=== PATIENT | female | born 1935 | race Caucasian/White ===

== ENCOUNTER 2017-09-19 15:34 | Observation (INO) ==
[2017-09-19] MEDS ORDERED: Morphine Inj 4 MG/ML Vial IV.PUSH ONE (16:44)
[2017-09-19 17:06] LABS: Baso # (Auto) 0.1 th/mm3 (0.0-0.2); Baso % (Auto) 0.9 % (0.0-2.0); Eos # (Auto) 0.1 th/mm3 (0.0-0.4); Eos % (Auto) 0.8 % (0.0-4.0); Hematocrit 34.7 % (35.0-46.0); Hemoglobin 11.8 gm/dL (11.6-15.3); Lymph # (Auto) 1.2 th/mm3 (1.0-4.8); Lymph % (Auto) 16.4 % (9.0-44.0); Mean Corpuscular HGB Conc 34.1 % (32.0-36.0); Mean Corpuscular Hemoglobin 29.4 pg (27.0-34.0); Mean Corpuscular Volume 86.1 fL (80.0-100.0); Mean Platelet Volume 7.6 fL (7.0-11.0); Mono # (Auto) 0.6 th/mm3 (0.0-0.9); Neut # (Auto) 5.2 th/mm3 (1.8-7.7); Neut % (Auto) 72.9 % (16.0-70.0); Platelet Count 312 th/mm3 (150-450); Red Blood Count 4.03 mil/mm3 (4.00-5.30); Red Cell Distribution Width 14.3 % (11.6-17.2); White Blood Count 7.2 th/mm3 (4.0-11.0)
[2017-09-19 17:14] LABS: Activated Partial Thrombo Time 26.4 sec (24.3-30.1); INR 1.1 Ratio; Prothrombin Time 11.2 sec (9.8-11.6)
--- NOTE | 2017-09-19 17:15 | XR ---
EXAM DATE: 09/19/2017 5:12 PM EDT AGE/SEX: 82 years / Female INDICATIONS: Shortness of breath. CLINICAL DATA: This is the patient's initial encounter. Patient reports that signs and symptoms have been present for 1 day and indicates a pain score of 0/10. MEDICAL/SURGICAL HISTORY: None. None. COMPARISON: No prior exams available for comparison. FINDINGS: No significant focal pleural or parenchymal opacities. The cardiomediastinal contours are unremarkabl e. Lower cervical fixation hardware in place. Osseous structures are intact. CONCLUSION: 1. No acute cardiopulmonary disease. Electronically signed by: Frankie Stafford MD 09/19/2017 5:13 PM EDT
--- NOTE | 2017-09-19 17:20 | ED ---
HPI General Chief Complaint: Syncope Stated Complaint: Syncopal episode/fall/hit back of head Time Seen by Provider: 09/19/17 16:33 Source: patient and family Mode of arrival: ambulatory Limitations: no limitations History of Present Illness HPI narrative: Pt is an 82 year old female presenting to the emergency department for evaluation after a syncopal episode. Pt was in her bathroom when she walked to the bathroom door and passed out hitting her head on the tile floor. She also presents complaining of pain in her sacrum. She denies feeling any chest pain, lightheadedness, dizziness prior to passing out. She has no other complaints at this time other than neck, head, sacrum pain which she rates a 7/10, aching, constant, worse with movement. Symptom onset was sudden, moderate in nature, unknown exacerbating factors. Pt was down for an hour before she could get herself to her phone to call 911. MD complaint: loss of consciousness and collapsed Onset (ago): hour(s) Prodromal symptoms: none Witnessed: no Context: after urination Injuries sustained associated with event: neck, head and other (sacrum) Current symptoms: headache Treatments prior to arrival: none Related Data Allergies Allergy/AdvReac Type Severity Reaction Status Date / Time No Known Allergies Allergy Severe Uncoded 06/02/13 16:33 Review of Systems ROS: all other systems reviewed are negative FOR[facility]LY [facility] Medical History Medical History Diabetes (Acute) GERD (gastroesophageal reflux disease) (Acute) HTN (hypertension) (Acute) Hard of hearing (Acute) High cholesterol (Acute) History of hysterectomy (Acute) Hx of radiation therapy (Acute) Thyroid disease (Acute) Uterine cancer (Acute) Surgical History Surgical History H/O eye surgery (Acute) H/O hemorrhoidectomy (Acute) H/O neck surgery (Acute) Hx of cholecystectomy (Acute) Social History Social History Substance History: No History of Abuse Smoking Status: Former smoker Tobacco Type: Cigarettes How Often Do You Have a Drink Containing Alcohol: Never Recent Travel in [facility] within the Last 8 Weeks: No Recent Out of Country Travel within the Last 8 Weeks: No Exam Const General: cooperative, healthy appearing, comfortable and no acute distress Nutritional Appearance: average body habitus Orientation: alert, awake and oriented x3 Eyes General: appearance normal, both eyes and all related structures Pupils: PERRL EOM: EOM intact bilaterally Neck Neck: normal visual inspection, full ROM and no midline deformity Resp Effort & Inspection: normal respiratory effort, able to speak in complete sentences and not tachypneic Auscultation: wheezes Cardio Rate: regular rate Rhythm: regular rhythm GI Inspection: normal to inspection Palpation: soft and no guarding Auscultation: normal bowel sounds Back/Spine/Pelvis Back: no CVA tenderness Thoracic/Lumbar Spine: thoracic and lumbar spine normal to inspection Sacrum: tenderness Neuro General: alert, awake, oriented x3, moves all extremities, no focal motor deficits and CN's II-XI intact bilaterally Cranial Nerves: facial strength normal Speech: speech normal Extrem General: normal to inspection Psych Appearance: grossly normal Mental Status: mental status grossly normal Speech and Movement: speech and movement normal Mood: congruent mood Affect: normal affect Course Initial Documented Vital Signs Temperature 97.8 F 09/19/17 15:59 Pulse Rate 79 09/19/17 15:59 Respiratory Rate 20 09/19/17 15:59 Blood Pressure 173/76 H 09/19/17 15:59 Pulse Oximetry 96 09/19/17 15:59 Last Documented Vital Signs Temperature 97.8 F 09/19/17 15:59 Pulse Rate 76 09/19/17 18:23 Respiratory Rate 18 09/19/17 18:23 Blood Pressure 157/80 H 09/19/17 18:23 Pulse Oximetry 96 09/19/17 18:23 Medical Decision Making LINA Attestation LINA supervised visit: Yes Attestation: I, Dr. Christine, have reviewed the advance practice practitioner's documentation and am in agreement, met with the patient face to face, made the diagnosis, and the medical decision making was done by me. *My assessment and Findings: Patient with syncopal episode today, she will require admission to the hospital for syncope workup. MDM Narrative Medical decision making narrative: Patient is an 82-year-old female presented to emerge department after an unwitnessed syncopal episode that occurred at home prior to arrival. Patient's vital signs are stable, she has no focal deficits on exam. Labs and imaging ordered and pending. Labs reviewed, no acute findings identified other than a potassium level 3.0, oral replacement ordered. CT scan of the brain and cervical spine show no acute findings, x-rays were unremarkable. Patient will be admitted under observation for syncopal workup. Discussed with Dr. Molina who accepted admission. My attending physician also evaluated patient, please see her dictation. Differential Diagnosis Differential Diagnosis: Metabolic abnormality versus cardiac arrhythmia versus vasovagal episode versus other Medical Records Medical records reviewed: Yes I reviewed the patient's medical records. Lab Data Lab results reviewed: Yes I reviewed the patient's lab results. Result diagrams: 09/19/17 16:46 09/19/17 16:46 Lab Results 09/19/17 09/19/17 09/19/17 Range/Units 16:46 16:46 16:46 WBC 7.2 (4.0-11.0) th/mm3 RBC 4.03 (4.00-5.30) mil/mm3 Hgb 11.8 (11.6-15.3) gm/dL Hct 34.7 L (35.0-46.0) % MCV 86.1 (80.0-100.0) fL MCH 29.4 (27.0-34.0) pg MCHC 34.1 (32.0-36.0) % RDW 14.3 (11.6-17.2) % Plt Count 312 (150-450) th/mm3 MPV 7.6 (7.0-11.0) fL Neut % (Auto) 72.9 H (16.0-70.0) % Lymph % (Auto) 16.4 (9.0-44.0) % [place] % (Auto) 9.0 H (0.0-8.0) % Eos % (Auto) 0.8 (0.0-4.0) % Baso % (Auto) 0.9 (0.0-2.0) % Neut # (Auto) 5.2 (1.8-7.7) th/mm3 Lymph # (Auto) 1.2 (1.0-4.8) th/mm3 [place] # (Auto) 0.6 (0.0-0.9) th/mm3 Eos # (Auto) 0.1 (0.0-0.4) th/mm3 Baso # (Auto) 0.1 (0.0-0.2) th/mm3 WBC Differential . Differential Comment Auto diff final PT 11.2 (9.8-11.6) sec INR 1.1 Ratio APTT 26.4 (24.3-30.1) sec Sodium 138 (136-145) meq/L Potassium 3.0 L (3.5-5.1) meq/L Chloride 100 (98-107) meq/L Carbon Dioxide 29.1 (21.0-32.0) meq/L Anion Gap 9 (5-15) meq/L BUN 20 H (7-18) mg/dL Creatinine 0.90 (0.50-1.00) mg/dL Estimated GFR 60 L (>89) mL/min Random Glucose 72 L (74-106) mg/dL Calcium 9.6 (8.5-10.1) mg/dL Magnesium 1.6 (1.5-2.5) mg/dL Total Bilirubin 0.3 (0.2-1.0) mg/dL AST 22 (15-37) U/L ALT 21 (10-53) U/L Alkaline Phosphatase 44 L (45-117) U/L Total Creatine Kinase (26-192) U/L Troponin I Less than 0.02 L (0.02-0.05) ng/mL Total Protein 7.3 (6.4-8.2) g/dL Albumin 3.9 (3.4-5.0) g/dL Urine Color (Yellw/Straw) Urine Clarity (Clear) Urine pH (5.0-8.5) Ur Specific [place] (1.002-1.035) Urine Protein (Neg-Trace) mg/dL Urine Glucose (UA) (Negative) mg/dL Urine Ketones (Negative) mg/dL Urine Occult Blood (Negative) Urine Nitrate (Negative) Urine Bilirubin (Negative) Urine Urobilinogen (Less than 2) mg/dL Ur Leukocyte Esterase (Negative) Urine RBC (0-3) /hpf Urine WBC (0-5) /hpf Ur Squamous Epith Cells (0-5) /hpf Urine Bacteria (None) /hpf Micro UA Comment Urine Culture Comments 09/19/17 09/19/17 Range/Units 16:46 19:15 WBC (4.0-11.0) th/mm3 RBC (4.00-5.30) mil/mm3 Hgb (11.6-15.3) gm/dL Hct (35.0-46.0) % MCV (80.0-100.0) fL MCH (27.0-34.0) pg MCHC (32.0-36.0) % RDW (11.6-17.2) % Plt Count (150-450) th/mm3 MPV (7.0-11.0) fL Neut % (Auto) (16.0-70.0) % Lymph % (Auto) (9.0-44.0) % [place] % (Auto) (0.0-8.0) % Eos % (Auto) (0.0-4.0) % Baso % (Auto) (0.0-2.0) % Neut # (Auto) (1.8-7.7) th/mm3 Lymph # (Auto) (1.0-4.8) th/mm3 [place] # (Auto) (0.0-0.9) th/mm3 Eos # (Auto) (0.0-0.4) th/mm3 Baso # (Auto) (0.0-0.2) th/mm3 WBC Differential Differential Comment PT (9.8-11.6) sec INR Ratio APTT (24.3-30.1) sec Sodium (136-145) meq/L Potassium (3.5-5.1) meq/L Chloride (98-107) meq/L Carbon Dioxide (21.0-32.0) meq/L Anion Gap (5-15) meq/L BUN (7-18) mg/dL Creatinine (0.50-1.00) mg/dL Estimated GFR (>89) mL/min Random Glucose (74-106) mg/dL Calcium (8.5-10.1) mg/dL Magnesium (1.5-2.5) mg/dL Total Bilirubin (0.2-1.0) mg/dL AST (15-37) U/L ALT (10-53) U/L Alkaline Phosphatase (45-117) U/L Total Creatine Kinase 103 (26-192) U/L Troponin I (0.02-0.05) ng/mL Total Protein (6.4-8.2) g/dL Albumin (3.4-5.0) g/dL Urine Color Straw (Yellw/Straw) Urine Clarity Clear (Clear) Urine pH 6.0 (5.0-8.5) Ur Specific [place] 1.005 (1.002-1.035) Urine Protein Negative (Neg-Trace) mg/dL Urine Glucose (UA) Negative (Negative) mg/dL Urine Ketones Negative (Negative) mg/dL Urine Occult Blood Negative (Negative) Urine Nitrate Negative (Negative) Urine Bilirubin Negative (Negative) Urine Urobilinogen Less than 2 (Less than 2) mg/dL Ur Leukocyte Esterase Negative (Negative) Urine RBC 1 (0-3) /hpf Urine WBC 1 (0-5) /hpf Ur Squamous Epith Cells 2 (0-5) /hpf Urine Bacteria Rare H (None) /hpf Micro UA Comment Culture not ind Urine Culture Comments Culture not ind Imaging Data Radiologist's impression: Cervical Spine CT 09/19/17 16:34 CONCLUSION: 1. Negative acute trauma study. Head CT 09/19/17 16:34 CONCLUSION: Negative noncontrast head CT. Chest X-Ray 09/19/17 16:43 CONCLUSION: 1. No acute cardiopulmonary disease. Lumbar Spine X-Ray 09/19/17 16:43 CONCLUSION: 1. No acute fracture or subluxation. MRI examination may be performed if there is continued significant clinical concern. 2. 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 Sacrum and Coccyx X-Ray 09/19/17 16:43 CONCLUSION: 1. No definitive evidence for sacral fracture. MRI examination may be performed if there is significant persistent clinical concern. Pelvis X-Ray 09/19/17 17:27 CONCLUSION: 1. No acute fracture or dislocation. Discharge Plan Discharge Disposition Patient Disposition: 30 Still Patient Discharge Condition Condition: Stable Discharge Details Diagnosis: Syncope and collapse Physicians Team ED Provider: Cony Christine ED Midlevel Provider: Zoraida Green Primary Care Provider: NON STAFF,PROVIDER Attending Provider: Cony Molina Status ED Status: Admitted Observation Patient
--- NOTE | 2017-09-19 17:21 | XR ---
EXAM DATE: 09/19/2017 5:15 PM EDT AGE/SEX: 82 years / Female INDICATIONS: Pain in lower back post fall today. CLINICAL DATA: This is the patient's initial encounter. Patient reports that signs and symptoms have been present for 1 day and indicates a pain score of 7/10. MEDICAL/SURGICAL HISTORY: None. None. COMPARISON: No prior exams available for comparison. FINDINGS: Vertebral body heights are intact. No evidence for acute bony fracture. Sagittal alignment is [place] kali. Degenerative spondylosis in the lower lumbar spine most prominently at L5-S1 with severe disc sp camacho narrowing and osteophyte formation. Bone density is normal for age. Soft tissues are grossly int act. CONCLUSION: 1. No acute fracture or subluxation. MRI examination may be performed if there is continued signific ant clinical concern. 2. Degenerative spondylosis of the lower lumbar spine most prominently at L5-S1. Electronically signed by: Frankie Stafford MD 09/19/2017 5:20 PM EDT
[2017-09-19 17:22] LABS: Albumin 3.9 g/dL (3.4-5.0); Anion Gap 9 meq/L (5-15); Aspartate Aminotransferase 22 U/L (15-37); Blood Urea Nitrogen 20 mg/dL (7-18); Calcium 9.6 mg/dL (8.5-10.1); Carbon Dioxide 29.1 meq/L (21.0-32.0); Chloride 100 meq/L (98-107); Glomerular Filtration Rate 60 mL/min (>89); Glucose,Random 72 mg/dL (74-106); Magnesium 1.6 mg/dL (1.5-2.5); Sodium 138 meq/L (136-145)
--- NOTE | 2017-09-19 17:23 | XR ---
EXAM DATE: 09/19/2017 5:14 PM EDT AGE/SEX: 82 years / Female INDICATIONS: Pain in lower back, post fall today. CLINICAL DATA: This is the patient's initial encounter. Patient reports that signs and symptoms have been present for 1 day and indicates a pain score of 6/10. MEDICAL/SURGICAL HISTORY: None. None. COMPARISON: [facility] [place], CT ABDOMEN & PELVIS W CONTRAST, 06/02/2013. . FINDINGS: Two-view examination of the sacrum and coccyx demonstrates no evidence of fracture or malalignment. The sacral ala and foramina appear symmetric and intact. The coccyx appears unremarkable. The preve rtebral soft tissues are within normal limits. Degenerative changes noted at L5-S1. CONCLUSION: 1. No definitive evidence for sacral fracture. MRI examination may be performed if there is signific ant persistent clinical concern. Electronically signed by: Frankie Stafford MD 09/19/2017 5:22 PM EDT
[2017-09-19 17:27] LABS: Alanine Aminotransferase 21 U/L (10-53); Alkaline Phosphatase 44 U/L (45-117); Total Protein 7.3 g/dL (6.4-8.2)
--- NOTE | 2017-09-19 17:50 | XR ---
EXAM DATE: 09/19/2017 5:42 PM EDT AGE/SEX: 82 years / Female INDICATIONS: Pelvic pain after fall. CLINICAL DATA: This is the patient's initial encounter. Patient reports that signs and symptoms have been present for 1 day and indicates a pain score of 10/10. MEDICAL/SURGICAL HISTORY: None. None. COMPARISON: [facility] [place], SACRUM COCCYX MIN 2V, 09/19/2017. . FINDINGS: Examination of the pelvis demonstrates no evidence of fracture or dislocation. Bony mineralization i s normal. There is no widening of the sacroiliac joints. No foreign body is identified. CONCLUSION: 1. No acute fracture or dislocation. Electronically signed by: Frankei Stafford MD 09/19/2017 5:49 PM EDT
--- NOTE | 2017-09-19 18:03 | CT ---
EXAM DATE: 09/19/2017 5:51 PM EDT AGE/SEX: 82 years / Female INDICATIONS: Syncopal episode, Fall, hit head. CLINICAL DATA: This is the patient's initial encounter. Patient reports that signs and symptoms have been present for 1 day and indicates a pain score of 10/10. MEDICAL/SURGICAL HISTORY: Gastroesophageal reflux disease. Hypertension. Diabetes. Uterine cance r. Cholecystectomy. Hysterectomy. Neck surgery. RADIATION DOSE: 56.35 CTDI (mGy) COMPARISON: No prior exams available for comparison. TECHNIQUE: CT of the head without contrast. Using automated exposure control and adjustment of the mA and/or kV according to patient size, radiation dose was kept as low as reasonably achievable to ob tain optimal diagnostic quality images. DICOM format image data is available electronically for revi ew and comparison. FINDINGS: Cerebrum: The ventricles are normal for age. No evidence of midline shift, mass lesion, hemorrhage or acute infarction. No extraaxial fluid collections are seen. Posterior Fossa: The cerebellum and brainstem are intact. The 4th ventricle is midline. The cerebe llopontine angle is unremarkable. Extracranial: The visualized portion of the orbits is intact. There is mucosal thickening in one of the ethmoidal air cells. Skull: The calvaria is intact. No evidence of skull fracture. CONCLUSION: Negative noncontrast head CT. Electronically signed by: Huber Alvarez MD 09/19/2017 6:02 PM EDT
--- NOTE | 2017-09-19 18:11 | CT ---
EXAM DATE: 09/19/2017 5:53 PM EDT AGE/SEX: 82 years / Female INDICATIONS: Syncopal episode, Fall, hit head. CLINICAL DATA: This is the patient's initial encounter. Patient reports that signs and symptoms have been present for 1 day and indicates a pain score of 10/10. MEDICAL/SURGICAL HISTORY: Gastroesophageal reflux disease. Diabetes. Hypertension. Uterine c ancer. Cholecystectomy. Hysterectomy. Neck surgery. RADIATION DOSE: 19.85 CTDI (mGy) COMPARISON: No prior exams available for comparison. TECHNIQUE: Contiguous axial images were obtained using helical multirow detector technique. The vol umetric data was post-processed with multiplanar reconstruction in oblique axial, sagittal, and coron al planes. Using automated exposure control and adjustment of the mA and/or kV according to patient s ize, radiation dose was kept as low as reasonably achievable to obtain optimal diagnostic quality savana ges. DICOM format image data is available electronically for review and comparison. FINDINGS: Vertebrae: Normal vertebral body height. Discs: The patient is status post anterior fusion at the C5-C7 level with screw plate fixation device . Device. The fusion is solid. Degenerative disc changes noted at the C4-5 level with mild spurring. Alignment: Normal. No subluxation. Axial images demonstrate that the vertebral bodies and posterior elements are intact with no evidence of fracture. Degenerative joint changes noted involving the facet joints. Hypertrophic ridging is no leanne at the C5-6 and C6-7 levels. CONCLUSION: 1. Negative acute trauma study. Electronically signed by: Huber Alvarez MD 09/19/2017 6:10 PM EDT
--- NOTE | 2017-09-19 18:47 | ECG ---
Date Performed: 09/19/2017 Time Performed: 17:27:24 PTAGE: 82 years EKG: Sinus rhythm NORMAL ECG No significant change from prior electrocardiogram. PREVIOUS TRACING : 02/04/2015 09.15 DOCTOR: Raoul Grider Interpretating Date/Time 09/19/2017 18:46:29
[2017-09-19 19:37] LABS: Bacteria,Urine Rare /hpf; Bilirubin,Urine Negative (Negative); Clarity,Urine Clear (Clear); Color,Urine Straw (Yellw/Straw); Glucose,Urine (UA) Negative (Negative); Leukocyte Esterase,Urine Negative (Negative); Nitrite,Urine Negative (Negative); Specific Gravity,Urine 1.005 (1.002-1.035); Squamous Epithelial Cell,Urine 2 /hpf (0-5)
[2017-09-19] MEDS ORDERED: Acetaminophen 325 MG Tablet PO PRN (20:48)
[2017-09-19] MEDS ORDERED: Dextrose 50% in Water 50 ML Vial IV.PUSH PRN (21:30)
--- NOTE | 2017-09-19 21:35 | P.HPIM ---
History of Present Illness Primary Care Physician: PROVIDER NON STAFF History of Present Illness: 82-year-old female with a history of diabetes, GERD, hyperlipidemia, hypertension, hypothyroid presented to the ED after having a syncopal episode in the bathroom. Patient states she was leaving the bathroom at home and passed out on the floor. When she came to took about an hour for her to call 911,. She denies any dizziness or chest pain prior to the fall. She does admit that she does have orthostatic hypotension and notices when she gets out of bed in the morning she has to take time otherwise she does get dizzy. Current complaints now is pain lower back, intermittent, 8/10, some relief with morphine, worse with movement. She has had carotid ultrasounds in the past and is unsure. Review of Systems All other systems reviewed negative except as stated in HPI [facility] - History History Provided By: Patient, Family Member - Medical History Medical History: Medical History (Last Reviewed 09/19/17 @ 17:19 by SABA Izquierdo) Diabetes GERD (gastroesophageal reflux disease) HTN (hypertension) Hard of hearing High cholesterol History of hysterectomy Hx of radiation therapy Thyroid disease Uterine cancer - Surgical History Surgical History: Surgical History (Last Reviewed 09/19/17 @ 17:19 by SABA Izquierdo) H/O eye surgery H/O hemorrhoidectomy H/O neck surgery Hx of cholecystectomy - Tobacco History Tobacco Use In Past 30 Days: No Smoking Status: Former smoker Tobacco Type: Cigarettes - Alcohol History How Often Do You Have a Drink Containing Alcohol: Never - Substance Use History Substance History: No History of Abuse - Travel History Recent Travel in the [place] Within the Last 8 Weeks: No Recent Travel Out of the Country Within the Last 8 Weeks: No - Immunization History Tetanus Immunization: <5 Years Hx Influenza Vaccine This Season: No Medications and Allergies Active Medications: Active Medications Acetaminophen (Tylenol) 650 mg PO Q4H PRN PRN Reason: Temp > 100.4 Ondansetron HCl (Zofran Inj) 4 mg IV.PUSH Q6H PRN PRN Reason: NAUSEA OR VOMITING Allergies Allergy/AdvReac Type Severity Reaction Status Date / Time No Known Allergies Allergy Severe Uncoded 06/02/13 16:33 Exam Vital signs: Vital Signs 09/19/17 15:59 09/19/17 17:10 09/19/17 17:28 Temperature 97.8 F Pulse Rate 79 77 79 Respiratory Rate 20 19 Blood Pressure 173/76 H 157/80 H Pulse Oximetry 96 97 95 09/19/17 18:23 Temperature Pulse Rate 76 Respiratory Rate 18 Blood Pressure 157/80 H Pulse Oximetry 96 Intake & Output 09/19/17 09/19/17 09/20/17 06:59 18:59 06:59 Weight 58.967 kg Narrative: GENERAL: This is a well-nourished, well-developed patient, in no apparent distress. SKIN: Warm, dry, intact, no ecchymosis or open lesions EYES: Pupils equal round and reactive, no scleral edema or drainage CARDIOVASCULAR: Regular rate and rhythm without murmurs, gallops, or rubs. RESPIRATORY: Clear to auscultation. Breath sounds equal bilaterally. No wheezes , rales, or rhonchi. GASTROINTESTINAL: Abdomen soft, non-tender, nondistended. Normal active bowel sounds MUSCULOSKELETAL: Extremities without clubbing, cyanosis, or edema. NEURO: Alert & Oriented x4 to person, place, time, situation. Moves all ext x4 Results - Labs CBC & Chem 7: 09/19/17 16:46 09/19/17 16:46 Labs: Short CBC 09/19/17 Range/Units 16:46 WBC 7.2 (4.0-11.0) th/mm3 Hgb 11.8 (11.6-15.3) gm/dL Hct 34.7 L (35.0-46.0) % Plt Count 312 (150-450) th/mm3 BMP 09/19/17 16:46 Sodium 138 Potassium 3.0 L Chloride 100 Carbon Dioxide 29.1 BUN 20 H Creatinine 0.90 Calcium 9.6 Cardiac Enzymes 09/19/17 09/19/17 Range/Units 16:46 16:46 Total Creatine Kinase 103 (26-192) U/L Troponin I Less than 0.02 L (0.02-0.05) ng/mL Liver Function 09/19/17 Range/Units 16:46 Total Bilirubin 0.3 (0.2-1.0) mg/dL AST 22 (15-37) U/L ALT 21 (10-53) U/L Alkaline Phosphatase 44 L (45-117) U/L Albumin 3.9 (3.4-5.0) g/dL Urine 09/19/17 Range/Units 19:15 Urine Color Straw (Yellw/Straw) Urine Clarity Clear (Clear) Urine pH 6.0 (5.0-8.5) Ur Specific [place] 1.005 (1.002-1.035) Urine Protein Negative (Neg-Trace) mg/dL Urine Glucose (UA) Negative (Negative) mg/dL - Imaging Impressions Cervical Spine CT 09/19/17 16:34 CONCLUSION: 1. Negative acute trauma study. Head CT 09/19/17 16:34 CONCLUSION: Negative noncontrast head CT. Chest X-Ray 09/19/17 16:43 CONCLUSION: 1. No acute cardiopulmonary disease. Lumbar Spine X-Ray 09/19/17 16:43 CONCLUSION: 1. No acute fracture or subluxation. MRI examination may be performed if there is continued significant clinical concern. 2. 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 Sacrum and Coccyx X-Ray 09/19/17 16:43 CONCLUSION: 1. No definitive evidence for sacral fracture. MRI examination may be performed if there is significant persistent clinical concern. Pelvis X-Ray 09/19/17 17:27 CONCLUSION: 1. No acute fracture or dislocation. Caprini VTE Risk Assessment Caprini VTE Risk Assessment: No/Low Risk (score <= 1) Caprini Risk Assessment Model: Point Value = 1 Point Value = 2 Point Value = 3 Point Value = 5 Age 41-60 Minor surgery BMI > 25 kg/m2 Swollen legs Varicose veins or History of unexplained or recurrent spontaneous Oral contraceptives or hormone replacement Sepsis (< 1 month) Serious lung disease, including pneumonia (< 1 month) Abnormal pulmonary function Acute myocardial infarction Congestive heart failure (< 1 month) History of inflammatory bowel disease Medical patient at bed rest Age 61-74 Arthroscopic surgery Major open surgery (> 45 min) Laparoscopic surgery (> 45 min) Malignancy Confined to bed (> 72 hours) Immobilizing plaster cast Central venous access Age >= 75 History of VTE Family history of VTE Factor V Leiden Prothrombin [id number] Lupus anticoagulant Anticardiolipin antibodies Elevated serum homocysteine Heparin-induced thrombocytopenia Other congenital or acquired thrombophilia Stroke (< 1 month) Elective arthroplasty Hip, pelvis, or leg fracture Acute spinal cord injury (< 1 month) Prophylaxis Regimen: Total Risk Factor Score Risk Level Prophylaxis Regimen 0-1 Low Early ambulation 2 Moderate Order ONE of the following: *Sequential Compression Device (SCD) *Heparin 5000 units SQ BID 3-4 Higher Order ONE of the following medications: *Heparin 5000 units SQ TID *Enoxaparin/Lovenox 40 mg SQ daily (WT < 150 kg, CrCl > 30 mL/min) *Enoxaparin/Lovenox 30 mg SQ daily (WT < 150 kg, CrCl > 10-29 mL/min) *Enoxaparin/Lovenox 30 mg SQ BID (WT < 150 kg, CrCl > 30 mL/min) AND/OR *Sequential Compression Device (SCD) 5 or more Highest Order ONE of the following medications: *Heparin 5000 units SQ TID (Preferred with Epidurals) *Enoxaparin/Lovenox 40 mg SQ daily (WT < 150 kg, CrCl > 30 mL/min) *Enoxaparin/Lovenox 30 mg SQ daily (WT < 150 kg, CrCl > 10-29 mL/min) *Enoxaparin/Lovenox 30 mg SQ BID (WT < 150 kg, CrCl > 30 mL/min) AND *Sequential Compression Device (SCD) Assessment and Plan - Plan 82-year-old female with a history of diabetes, GERD, hyperlipidemia, hypertension, hypothyroid presented to the ED after having a syncopal episode in the bathroom. Patient states she was leaving the bathroom at home and passed out on the floor. Syncope Head CT reviewed and unremarkable EKG reviewed and shows SR -2d echo, and carotid US ordered -Neuro checks -Consult to neurology for evaluation -Holter monitor -Monitor telemetry -Orthostatic BPs ordered Hypokalemia, acute, potassium 3.0 -Supplementation ordered, labs in am, replace as needed DM, chronic -Accu checks with SSI -Diabetic diet HTN, chronic -Resume home medications when med rec is updated, monitor vitals DVT prophylaxisL: SCDS Discussed Condition With: Patient and RN
[2017-09-20 07:44] LABS: Eos # (Auto) 0.1 th/mm3 (0.0-0.4); Eos % (Auto) 1.2 % (0.0-4.0); Hemoglobin 10.6 gm/dL (11.6-15.3); Lymph % (Auto) 20.2 % (9.0-44.0); Mean Corpuscular HGB Conc 34.2 % (32.0-36.0); Mean Corpuscular Hemoglobin 29.5 pg (27.0-34.0); Mean Corpuscular Volume 86.3 fL (80.0-100.0); Mean Platelet Volume 7.7 fL (7.0-11.0); Mono # (Auto) 0.6 th/mm3 (0.0-0.9); Mono % (Auto) 12.1 % (0.0-8.0); Neut # (Auto) 3.3 th/mm3 (1.8-7.7); Neut % (Auto) 65.5 % (16.0-70.0); Platelet Count 259 th/mm3 (150-450); Red Blood Count 3.59 mil/mm3 (4.00-5.30); Red Cell Distribution Width 14.2 % (11.6-17.2); White Blood Count 5.1 th/mm3 (4.0-11.0)
[2017-09-20 07:58] LABS: Calcium 9.4 mg/dL (8.5-10.1); Potassium 3.5 meq/L (3.5-5.1)
[2017-09-20] MEDS: Insulin NovoLIN Regular Correctional Sugar Inj SQ SCH ×4 (09:02→22:34)
--- NOTE | 2017-09-20 11:08 | US ---
EXAM DATE: 09/20/2017 10:58 AM EDT AGE/SEX: 82 years / Female INDICATIONS: Syncope. CLINICAL DATA: This is the patient's initial encounter. Patient reports that signs and symptoms have been present for 1 day and indicates a pain score of 0/10. MEDICAL/SURGICAL HISTORY: Diabetes. Gastroesophageal reflux disease. Hypercholesterolemia. H ypertension. Thyroid disease. Uterine Cancer. Radiation Therapy. Cholecystectomy. Hemorrhoidecto my. Neck surgery. Eye surgery. COMPARISON: No prior exams available for comparison. VELOCITY PARAMETERS: ICA/CCA Ratio: Right 1.0 , Left 1.1 ICA: Right 59.4 cm/sec, Left 80.6 cm/sec CCA: Right 58.1 cm/sec, Left 70.2 cm/sec ECA: Right 71.1 cm/sec, Left 55.9 cm/sec Vertebral: Right 44.9 cm/sec antegrade, Left 40.6 cm/sec antegrade FINDINGS: Right Carotid: Moderate arteriosclerotic plaque is visualized.The waveforms are within normal limits . Left Carotid: Moderate arteriosclerotic plaque is visualized. The waveforms are within normal limits . Other: None. CONCLUSION: 1. Right Internal Carotid Artery: Moderate atherosclerotic calcified plaquing in the carotid bulb ex tending up into the internal. No sonographic findings of a hemodynamically significant stenosis, starkey nelly. 2. Left Internal Carotid Artery: Moderate atherosclerotic calcified plaquing in the carotid bulb ext ending up into the internal and external. No sonographic findings of a hemodynamically significant st enosis, however. 3. Antegrade flow in both vertebrals. Electronically signed by: Darren Alcocer MD 09/20/2017 11:07 AM EDT
[2017-09-20] MEDS: hydroCHLOROthiazide 25 MG Tablet PO SCH (11:46)
[2017-09-20] MEDS: Gabapentin 300 MG Capsule PO SCH ×3 (11:46→17:08)
[2017-09-20] MEDS: Levothyroxine 100 MCG Tablet PO SCH (11:46)
[2017-09-20] MEDS: Hydroxychloroquine 200 MG Tablet PO SCH (12:08)
[2017-09-20] MEDS: Famotidine 20 MG Tablet PO SCH (13:16)
--- NOTE | 2017-09-20 16:32 | P.PN ---
Subjective Interval history: Patient is seen lying in bed. Her daughter is present; daughter brought in updated list of home medications. Patient is concerned about her blood pressure being elevated and that she is having some pain. She tells me that she does take pain medication at home. Denies any additional syncopal episodes. Her pain is primarily in her lower back and has been chronic for many years. Daughter tells me they are working to get a panic button for her as well as exploring what options are available to [place] of aging. Physical Exam Vital signs: Vital Signs 09/19/17 17:10 09/19/17 17:28 09/19/17 18:23 Temperature Pulse Rate 77 79 76 Respiratory Rate 19 18 Blood Pressure 157/80 H 157/80 H Pulse Oximetry 97 95 96 09/19/17 21:54 09/19/17 21:59 09/19/17 22:04 Temperature 98.2 F 98.2 F 98.2 F Pulse Rate 81 81 70 Respiratory Rate 17 17 17 Blood Pressure 182/86 H 188/78 H 145/86 H Pulse Oximetry 95 95 09/19/17 23:24 09/20/17 05:05 09/20/17 06:01 Temperature Pulse Rate 88 82 79 Respiratory Rate 16 17 Blood Pressure 128/60 130/75 Pulse Oximetry 93 L 09/20/17 08:00 09/20/17 11:27 09/20/17 15:58 Temperature 98.2 F 98.1 F 97.8 F Pulse Rate 76 72 73 Respiratory Rate 16 16 18 Blood Pressure 181/83 H 188/84 H 172/77 H Pulse Oximetry 91 L 95 98 Intake & Output 09/19/17 09/20/17 09/20/17 18:59 06:59 18:59 Weight 58.967 kg Other: Date of Last Bowel Movement 09/19/17 Narrative: GENERAL: This is a well-nourished, well-developed patient, in no apparent distress. SKIN: Warm, dry, intact, no ecchymosis or open lesions EYES: Pupils equal round and reactive, no scleral edema or drainage CARDIOVASCULAR: Regular rate and rhythm without murmurs, gallops, or rubs. RESPIRATORY: Clear to auscultation. Breath sounds equal bilaterally. No wheezes , rales, or rhonchi. GASTROINTESTINAL: Abdomen soft, non-tender, nondistended. Normal active bowel sounds MUSCULOSKELETAL: Extremities without clubbing, cyanosis, or edema. NEURO: Alert & Oriented x4 to person, place, time, situation. Moves all ext x4 Results - Labs CBC & Chem 7: 09/20/17 06:10 09/20/17 06:20 Laboratory Results - last 24 hr 09/19/17 09/19/17 09/19/17 16:46 16:46 16:46 WBC 7.2 RBC 4.03 Hgb 11.8 Hct 34.7 L MCV 86.1 MCH 29.4 MCHC 34.1 RDW 14.3 Plt Count 312 MPV 7.6 Neut % (Auto) 72.9 H Lymph % (Auto) 16.4 [place] % (Auto) 9.0 H Eos % (Auto) 0.8 Baso % (Auto) 0.9 Neut # (Auto) 5.2 Lymph # (Auto) 1.2 [place] # (Auto) 0.6 Eos # (Auto) 0.1 Baso # (Auto) 0.1 WBC Differential . Differential Comment Auto diff final PT 11.2 INR 1.1 APTT 26.4 Sodium 138 Potassium 3.0 L Chloride 100 Carbon Dioxide 29.1 Anion Gap 9 BUN 20 H Creatinine 0.90 Estimated GFR 60 L POC Glucose Random Glucose 72 L Calcium 9.6 Magnesium 1.6 Total Bilirubin 0.3 AST 22 ALT 21 Alkaline Phosphatase 44 L Total Creatine Kinase Troponin I Less than 0.02 L Total Protein 7.3 Albumin 3.9 Urine Color Urine Clarity Urine pH Ur Specific [place] Urine Protein Urine Glucose (UA) Urine Ketones Urine Occult Blood Urine Nitrate Urine Bilirubin Urine Urobilinogen Ur Leukocyte Esterase Urine RBC Urine WBC Ur Squamous Epith Cells Urine Bacteria Micro UA Comment Urine Culture Comments 09/19/17 09/19/17 09/20/17 16:46 19:15 06:10 WBC 5.1 RBC 3.59 L Hgb 10.6 L Hct 31.0 L MCV 86.3 MCH 29.5 MCHC 34.2 RDW 14.2 Plt Count 259 MPV 7.7 Neut % (Auto) 65.5 Lymph % (Auto) 20.2 [place] % (Auto) 12.1 H Eos % (Auto) 1.2 Baso % (Auto) 1.0 Neut # (Auto) 3.3 Lymph # (Auto) 1.0 [place] # (Auto) 0.6 Eos # (Auto) 0.1 Baso # (Auto) 0.0 WBC Differential . Differential Comment Auto diff final PT INR APTT Sodium Potassium Chloride Carbon Dioxide Anion Gap BUN Creatinine Estimated GFR POC Glucose Random Glucose Calcium Magnesium Total Bilirubin AST ALT Alkaline Phosphatase Total Creatine Kinase 103 Troponin I Total Protein Albumin Urine Color Straw Urine Clarity Clear Urine pH 6.0 Ur Specific [place] 1.005 Urine Protein Negative Urine Glucose (UA) Negative Urine Ketones Negative Urine Occult Blood Negative Urine Nitrate Negative Urine Bilirubin Negative Urine Urobilinogen Less than 2 Ur Leukocyte Esterase Negative Urine RBC 1 Urine WBC 1 Ur Squamous Epith Cells 2 Urine Bacteria Rare H Micro UA Comment Culture not ind Urine Culture Comments Culture not ind 09/20/17 09/20/17 09/20/17 06:20 08:04 13:18 WBC RBC Hgb Hct MCV MCH MCHC RDW Plt Count MPV Neut % (Auto) Lymph % (Auto) [place] % (Auto) Eos % (Auto) Baso % (Auto) Neut # (Auto) Lymph # (Auto) [place] # (Auto) Eos # (Auto) Baso # (Auto) WBC Differential Differential Comment PT INR APTT Sodium 142 Potassium 3.5 Chloride 105 Carbon Dioxide 31.0 Anion Gap 6 BUN 15 Creatinine 0.88 Estimated GFR 62 L POC Glucose 80 100 Random Glucose 69 L Calcium 9.4 Magnesium Total Bilirubin AST ALT Alkaline Phosphatase Total Creatine Kinase Troponin I Total Protein Albumin Urine Color Urine Clarity Urine pH Ur Specific [place] Urine Protein Urine Glucose (UA) Urine Ketones Urine Occult Blood Urine Nitrate Urine Bilirubin Urine Urobilinogen Ur Leukocyte Esterase Urine RBC Urine WBC Ur Squamous Epith Cells Urine Bacteria Micro UA Comment Urine Culture Comments - Imaging Impressions Cervical Spine CT 09/19/17 16:34 CONCLUSION: 1. Negative acute trauma study. Head CT 09/19/17 16:34 CONCLUSION: Negative noncontrast head CT. Chest X-Ray 09/19/17 16:43 CONCLUSION: 1. No acute cardiopulmonary disease. Lumbar Spine X-Ray 09/19/17 16:43 CONCLUSION: 1. No acute fracture or subluxation. MRI examination may be performed if there is continued significant clinical concern. 2. 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 Sacrum and Coccyx X-Ray 09/19/17 16:43 CONCLUSION: 1. No definitive evidence for sacral fracture. MRI examination may be performed if there is significant persistent clinical concern. Pelvis X-Ray 09/19/17 17:27 CONCLUSION: 1. No acute fracture or dislocation. Carotid Doppler Study 09/20/17 00:00 CONCLUSION: 1. Right Internal Carotid Artery: Moderate atherosclerotic calcified plaquing in the carotid bulb extending up into the internal. No sonographic findings of a hemodynamically significant stenosis, however. 2. Left Internal Carotid Artery: Moderate atherosclerotic calcified plaquing in the carotid bulb extending up into the internal and external. No sonographic findings of a hemodynamically significant stenosis, however. 3. Antegrade flow in both vertebrals. Assessment and Plan - Plan 82-year-old female with a history of diabetes, GERD, hyperlipidemia, hypertension, hypothyroid presented to the ED after having a syncopal episode in the bathroom. Patient states she was leaving the bathroom at home and passed out on the floor. Syncope Head CT reviewed and unremarkable EKG reviewed and shows SR -2d echo ordered; carotid ultrasound showed no significant stenosis -Neuro checks -Consult to neurology for evaluation -Holter monitor -Monitor telemetry -Orthostatic BPs ordered Hypokalemia, acute, potassium 3.0 -Supplementation ordered, labs in am, replace as needed; potassium WNL on 09/20 DM, chronic -Accu checks with SSI -Diabetic diet HTN, chronic -Resume home medications DVT prophylaxisL: SCDS Discussed Condition With: Patient and RN
[2017-09-20] MEDS: Fenofibrate 48 MG Tablet PO SCH (17:08)
--- NOTE | 2017-09-20 17:58 | P.CONNEU ---
History of Present Illness Service: Neurology Primary Care Provider: PROVIDER NON STAFF Chief Complaint: Syncope History of Present Illness: 82-year-old female with a history of diabetes, GERD, hyperlipidemia, hypertension, hypothyroid presented to the ED after having a syncopal episode in the bathroom. Patient states she was leaving the bathroom at home and passed out on the floor. States she is walking back may have hit the door and fallen backwards she is not quite certain. Denies any chest pain dyspnea or any palpitations at the time or any focal weakness. When she came to took about an hour for her to call 911,. She denies any dizziness or chest pain prior to the fall. States she has had this occur to her in the past. In addition states that when she goes from a sitting to standing position she can get a little lightheaded. She denies any current vertigo any history of TIA or stroke or seizure. Denies any head or neck pain or any focal weakness or tremors. She states she does ambulate with a walker at baseline. States she lives alone but her daughter lives in the same building as her. She does not drive. Review of Systems All other systems reviewed negative except as stated in HPI PMFSH - History History Provided By: Patient, Family Member - Medical History Medical History: Medical History (Last Reviewed 09/20/17 @ 07:57 by Huber Mota) Diabetes GERD (gastroesophageal reflux disease) HTN (hypertension) Hard of hearing High cholesterol History of hysterectomy Hx of radiation therapy Thyroid disease Uterine cancer - Surgical History Surgical History: Surgical History (Last Reviewed 09/20/17 @ 07:57 by Huber Mota) H/O eye surgery H/O hemorrhoidectomy H/O neck surgery Hx of cholecystectomy - Tobacco History Second Hand Smoke Exposure: No Tobacco Use In Past 30 Days: No Smoking Status: Former smoker Tobacco Type: Cigarettes - Alcohol History How Often Do You Have a Drink Containing Alcohol: Never - Substance Use History Substance History: No History of Abuse - Travel History Recent Travel in the [place] Within the Last 8 Weeks: No Recent Travel Out of the Country Within the Last 8 Weeks: No - Immunization History Tetanus Immunization: <5 Years Hx Influenza Vaccine This Season: No Medications and Allergies Active Medications: Active Medications Acetaminophen (Tylenol) 650 mg PO Q4H PRN PRN Reason: Temp > 100.4 Hydrocodone Bitart/Acetaminophen ([place] 7.5/325) 1 tab PO Q6H PRN PRN Reason: PAIN SCALE 1 TO 10 Last Admin: 09/20/17 17:08 Dose: 1 tab Clopidogrel Bisulfate (Plavix) 75 mg PO DAILY [facility] Last Admin: 09/20/17 11:46 Dose: 75 mg Dextrose (D50w Vial) 50 ml IV.PUSH UNSCH PRN PRN Reason: PER HYPOGLYCEMIA PROTOCOL Famotidine (Pepcid) 10 mg PO DAILY [facility] Last Admin: 09/20/17 13:16 Dose: 10 mg Fenofibrate (Tricor) 48 mg PO DAILY [facility] Last Admin: 09/20/17 17:08 Dose: 48 mg Gabapentin (Neurontin) 300 mg PO TID [facility] Last Admin: 09/20/17 17:08 Dose: 300 mg Glucagon (Glucagon Inj) 1 mg OTHER PRN PRN PRN Reason: for Hypoglycemia Protocol Hydrochlorothiazide (Hydrodiuril) 25 mg PO DAILY [facility] Last Admin: 09/20/17 11:46 Dose: 25 mg Hydroxychloroquine Sulfate (Plaquenil) 200 mg PO DAILY [facility] Last Admin: 09/20/17 12:08 Dose: 200 mg Insulin Human Regular (Novolin R Correctional Sugar Inj) 0 units SQ ACHS [facility]; Protocol Last Admin: 09/20/17 17:20 Dose: Not Given Levothyroxine Sodium (Synthroid) 100 mcg PO DAILY@0600 [facility] Last Admin: 09/20/17 11:46 Dose: 100 mcg Liothyronine Sodium (Cytomel) 25 mcg PO DAILY [facility] Last Admin: 09/20/17 12:08 Dose: 25 mcg Losartan Potassium (Cozaar) 50 mg PO DAILY [facility] Last Admin: 09/20/17 13:16 Dose: 50 mg Ondansetron HCl (Zofran Inj) 4 mg IV.PUSH Q6H PRN PRN Reason: NAUSEA OR VOMITING Pravastatin Sodium (Pravachol) 40 mg PO [facility] Allergies Allergy/AdvReac Type Severity Reaction Status Date / Time No Known Allergies Allergy Severe Uncoded 06/02/13 16:33 Home Medications Medication Instructions Recorded Confirmed Type clopidogrel 75 mg PO DAILY 09/20/17 09/20/17 History fenofibrate micronized 134 mg PO DAILY 09/20/17 09/20/17 History gabapentin 300 mg PO TID 09/20/17 09/20/17 History glimepiride 2 mg PO QAM 09/20/17 09/20/17 History hydrochlorothiazide 25 mg PO DAILY 09/20/17 09/20/17 History hydrocodone-ibuprofen 1 tab PO Q6H 09/20/17 09/20/17 History hydroxychloroquine 200 mg PO DAILY 09/20/17 09/20/17 History levothyroxine 100 mcg PO DAILY 09/20/17 09/20/17 History liothyronine 25 mcg PO DAILY 09/20/17 09/20/17 History ranitidine HCl 150 mg PO DAILY 09/20/17 09/20/17 History simvastatin 20 mg PO QPM 09/20/17 09/20/17 History valsartan 80 mg PO DAILY 09/20/17 09/20/17 History valsartan 80 mg PO DAILY 09/20/17 09/20/17 History Exam Vital signs: Vital Signs 09/19/17 18:23 09/19/17 21:54 09/19/17 21:59 Temperature 98.2 F 98.2 F Pulse Rate 76 81 81 Respiratory Rate 18 17 17 Blood Pressure 157/80 H 182/86 H 188/78 H Pulse Oximetry 96 95 95 09/19/17 22:04 09/19/17 23:24 09/20/17 05:05 Temperature 98.2 F Pulse Rate 70 88 82 Respiratory Rate 17 16 Blood Pressure 145/86 H 128/60 Pulse Oximetry 09/20/17 06:01 09/20/17 08:00 09/20/17 11:27 Temperature 98.2 F 98.1 F Pulse Rate 79 76 72 Respiratory Rate 17 16 16 Blood Pressure 130/75 181/83 H 188/84 H Pulse Oximetry 93 L 91 L 95 09/20/17 15:58 Temperature 97.8 F Pulse Rate 73 Respiratory Rate 18 Blood Pressure 172/77 H Pulse Oximetry 98 Intake & Output 09/19/17 09/20/17 09/20/17 18:59 06:59 18:59 Weight 58.967 kg Other: Date of Last Bowel Movement 09/19/17 Narrative: GENERAL: This is a well-nourished, well-developed patient, in no apparent distress. SKIN: Warm, dry, intact, no ecchymosis or open lesions EYES: Pupils equal round and reactive, no scleral edema or drainage CARDIOVASCULAR: Regular rate and rhythm without murmurs, RESPIRATORY: Clear to auscultation. Breath sounds equal bilaterally. GASTROINTESTINAL: Abdomen soft, non-tender, nondistended. Normal active bowel sounds MUSCULOSKELETAL: Extremities without clubbing, cyanosis, or edema. NEURO: Alert & Oriented x4 to person, place, time, situation. Pleasant, articulate. Extraocular movements intact no facial asymmetry tongue midline no pronator drift slightly increased tone in the upper limbs. Able raise all 4 extremity gravity for greater than 10 seconds gait not assessed secondary to fall risk - Constitutional no acute distress - Routine HEENT Exam Head: Present: normocephalic Results - Labs CBC & Chem 7: 09/20/17 06:10 09/20/17 06:20 Labs: Laboratory Results - last 24 hr 09/19/17 09/19/17 09/20/17 16:46 19:15 06:10 WBC 5.1 RBC 3.59 L Hgb 10.6 L Hct 31.0 L MCV 86.3 MCH 29.5 MCHC 34.2 RDW 14.2 Plt Count 259 MPV 7.7 Neut % (Auto) 65.5 Lymph % (Auto) 20.2 [place] % (Auto) 12.1 H Eos % (Auto) 1.2 Baso % (Auto) 1.0 Neut # (Auto) 3.3 Lymph # (Auto) 1.0 [place] # (Auto) 0.6 Eos # (Auto) 0.1 Baso # (Auto) 0.0 WBC Differential . Differential Comment Auto diff final Sodium Potassium Chloride Carbon Dioxide Anion Gap BUN Creatinine Estimated GFR POC Glucose Random Glucose Calcium Total Creatine Kinase 103 Urine Color Straw Urine Clarity Clear Urine pH 6.0 Ur Specific [place] 1.005 Urine Protein Negative Urine Glucose (UA) Negative Urine Ketones Negative Urine Occult Blood Negative Urine Nitrate Negative Urine Bilirubin Negative Urine Urobilinogen Less than 2 Ur Leukocyte Esterase Negative Urine RBC 1 Urine WBC 1 Ur Squamous Epith Cells 2 Urine Bacteria Rare H Micro UA Comment Culture not ind Urine Culture Comments Culture not ind 09/20/17 09/20/17 09/20/17 06:20 08:04 13:18 WBC RBC Hgb Hct MCV MCH MCHC RDW Plt Count MPV Neut % (Auto) Lymph % (Auto) [place] % (Auto) Eos % (Auto) Baso % (Auto) Neut # (Auto) Lymph # (Auto) [place] # (Auto) Eos # (Auto) Baso # (Auto) WBC Differential Differential Comment Sodium 142 Potassium 3.5 Chloride 105 Carbon Dioxide 31.0 Anion Gap 6 BUN 15 Creatinine 0.88 Estimated GFR 62 L POC Glucose 80 100 Random Glucose 69 L Calcium 9.4 Total Creatine Kinase Urine Color Urine Clarity Urine pH Ur Specific [place] Urine Protein Urine Glucose (UA) Urine Ketones Urine Occult Blood Urine Nitrate Urine Bilirubin Urine Urobilinogen Ur Leukocyte Esterase Urine RBC Urine WBC Ur Squamous Epith Cells Urine Bacteria Micro UA Comment Urine Culture Comments 09/20/17 17:05 WBC RBC Hgb Hct MCV MCH MCHC RDW Plt Count MPV Neut % (Auto) Lymph % (Auto) [place] % (Auto) Eos % (Auto) Baso % (Auto) Neut # (Auto) Lymph # (Auto) [place] # (Auto) Eos # (Auto) Baso # (Auto) WBC Differential Differential Comment Sodium Potassium Chloride Carbon Dioxide Anion Gap BUN Creatinine Estimated GFR POC Glucose 153 H Random Glucose Calcium Total Creatine Kinase Urine Color Urine Clarity Urine pH Ur Specific [place] Urine Protein Urine Glucose (UA) Urine Ketones Urine Occult Blood Urine Nitrate Urine Bilirubin Urine Urobilinogen Ur Leukocyte Esterase Urine RBC Urine WBC Ur Squamous Epith Cells Urine Bacteria Micro UA Comment Urine Culture Comments - Imaging Impressions Cervical Spine CT 09/19/17 16:34 CONCLUSION: 1. Negative acute trauma study. Head CT 09/19/17 16:34 CONCLUSION: Negative noncontrast head CT. Carotid Doppler Study 09/20/17 00:00 CONCLUSION: 1. Right Internal Carotid Artery: Moderate atherosclerotic calcified plaquing in the carotid bulb extending up into the internal. No sonographic findings of a hemodynamically significant stenosis, however. 2. Left Internal Carotid Artery: Moderate atherosclerotic calcified plaquing in the carotid bulb extending up into the internal and external. No sonographic findings of a hemodynamically significant stenosis, however. 3. Antegrade flow in both vertebrals. Review/Management - Diagnosis (1) Syncope and collapse Code(s): R55 - Syncope and collapse Status: Acute Current Visit: Yes (2) Hypertension Code(s): I10 - Essential (primary) hypertension Status: Acute Current Visit : Yes (3) Gait disorder Code(s): R26.9 - Unspecified abnormalities of gait and mobility Status: Acute Current Visit: Yes - Review/Management Plan: Possibly related orthostatic hypotension versus vasovagal versus secondary to cardiac arrhythmia Unlikely to be a TIA or seizure Recommendations Telemetry Orthostatic blood pressure and pulse Consider cardiac evaluation to exclude any arrhythmia PT evaluation Follow-up TSH B12 level, EEG No driving Discharge planning after the above follow-up in the outpatient setting
[2017-09-20 19:36] LABS: Thyroid Stimulating Hormone 0.014 uIU/mL (0.358-3.740)
--- NOTE | 2017-09-20 19:47 | MR ---
EXAM DATE: 09/20/2017 7:41 PM EDT AGE/SEX: 82 years / Female INDICATIONS: CVA. Syncopal episode. Patient fell and hit her head. CLINICAL DATA: This is the patient's initial encounter. Patient reports that signs and symptoms have been present for 2 days and indicates a pain score of 3/10. MEDICAL/SURGICAL HISTORY: Hypertension. Diabetes mellitus type II. Hypothyroidism. Uterine c ancer. Hysterectomy. Hemorrhoidectomy. Cholecystectomy. Eye sx, CSP fusion. [place] [facility] [place]. . TECHNIQUE: Multiplanar, multisequence examination of the brain was performed without contrast. FINDINGS: Cerebrum: The ventricles are normal for age. No evidence of midline shift, mass lesion, hemorrhage or acute infarction. No extraaxial fluid collections are seen. The pituitary gland and suprasellar cistern are normal in configuration. White Matter: On the FLAIR weighted images there is mild increased signal in centrum semiovale and p eriventricular white matter. Posterior Fossa: The cerebellum and brainstem are intact. The 4th ventricle is midline. The cerebel lopontine angle is unremarkable. The cerebellar tonsils are normal in position. Diffusion Imaging: No focal areas of restricted diffusion are seen. No evidence of acute infarction . Extracranial: The visualized portions of the orbits and paranasal sinuses are unremarkable. CONCLUSION: 1. No acute hemorrhage, mass or infarction. 2. Mild atrophy and chronic small vessel ischemic change. Electronically signed by: Huber Alvarez MD 09/20/2017 7:45 PM EDT
--- NOTE | 2017-09-20 19:49 | MR ---
EXAM DATE: 09/20/2017 7:42 PM EDT AGE/SEX: 82 years / Female INDICATIONS: . Abnormal gait. Patient had a syncopal episode. CLINICAL DATA: This is the patient's initial encounter. Patient reports that signs and symptoms have been present for 2 days and indicates a pain score of 2/10. MEDICAL/SURGICAL HISTORY: Diabetes mellitus type II. Hypertension. Hypothyroidism. Uterine c ancer. Hemorrhoidectomy. Hysterectomy. Cholecystectomy. CSP fusion, eye sx. COMPARISON: [facility], MR HEAD W/O CONTRAST, 09/20/2017. . TECHNIQUE: 3D [id number] MRA was performed. Source images, multiplanar STS MIP, and 3D volum e MIP reconstructions were reviewed. FINDINGS: There is excellent visualization of the major intracranial arteries out to the second-order branch ve ssels. There is no evidence for aneurysm, vessel truncation or stenosis, and no evidence for vascula r malformation. CONCLUSION: 1. Negative exam. Electronically signed by: Huber Alvarez MD 09/20/2017 7:48 PM EDT
[2017-09-21] MEDS: Levothyroxine 100 MCG Tablet PO SCH (06:22)
--- NOTE | 2017-09-21 07:35 | P.DCO ---
- Physical Therapy Order: Evaluate and treat, Improve ambulation, Strength and gait training - Home Health Nursing Order: Medical education, Signs/symptoms of disease process, Medication education-adverse effect, Nursing assessment with vital signs - Proposal Editor Order: To evaluate: Living conditions/environment, Support services Order: To provide: Long range planning, Community services - Certification I have seen patient Krista Dyson on 09/21/17. My clinical findings support the need for the requested home health care services because: Limited mobility due to disease progression, Deconditioned with increased weakness, Medication compliance is questionable, Limited ability to care for self, Impaired cognition/judgement, High risk of falls I certify that my clinical findings support that this patient is homebound because: Impaired cognitive ability/safety, Unsteady gait/balance, Unsafe to leave home unassisted, Unable to use public transportation
[2017-09-21 07:57] VITALS: RESP 16
[2017-09-21] MEDS: Insulin NovoLIN Regular Correctional Sugar Inj SQ SCH ×3 (09:00→18:09)
[2017-09-21 09:06] VITALS: O2SAT 95
--- NOTE | 2017-09-21 09:24 | P.PNNEU ---
Subjective Subjective Comments: No acute events reported No headache No chest pain No dyspnea Active Medications: Active Medications Acetaminophen (Tylenol) 650 mg PO Q4H PRN PRN Reason: Temp > 100.4 Hydrocodone Bitart/Acetaminophen ([place] 7.5/325) 1 tab PO Q6H PRN PRN Reason: PAIN SCALE 1 TO 10 Last Admin: 09/20/17 17:08 Dose: 1 tab Clopidogrel Bisulfate (Plavix) 75 mg PO DAILY [facility] Last Admin: 09/20/17 11:46 Dose: 75 mg Dextrose (D50w Vial) 50 ml IV.PUSH UNSCH PRN PRN Reason: PER HYPOGLYCEMIA PROTOCOL Famotidine (Pepcid) 10 mg PO DAILY [facility] Last Admin: 09/20/17 13:16 Dose: 10 mg Fenofibrate (Tricor) 48 mg PO DAILY [facility] Last Admin: 09/20/17 17:08 Dose: 48 mg Gabapentin (Neurontin) 300 mg PO TID [facility] Last Admin: 09/20/17 17:08 Dose: 300 mg Glucagon (Glucagon Inj) 1 mg OTHER PRN PRN PRN Reason: for Hypoglycemia Protocol Hydrochlorothiazide (Hydrodiuril) 25 mg PO DAILY [facility] Last Admin: 09/20/17 11:46 Dose: 25 mg Hydroxychloroquine Sulfate (Plaquenil) 200 mg PO DAILY [facility] Last Admin: 09/20/17 12:08 Dose: 200 mg Insulin Human Regular (Novolin R Correctional Sugar Inj) 0 units SQ ACHS [facility]; Protocol Last Admin: 09/21/17 09:00 Dose: Not Given Levothyroxine Sodium (Synthroid) 100 mcg PO DAILY@0600 [facility] Last Admin: 09/21/17 06:22 Dose: 100 mcg Liothyronine Sodium (Cytomel) 25 mcg PO DAILY [facility] Last Admin: 09/20/17 12:08 Dose: 25 mcg Losartan Potassium (Cozaar) 50 mg PO DAILY [facility] Last Admin: 09/20/17 13:16 Dose: 50 mg Ondansetron HCl (Zofran Inj) 4 mg IV.PUSH Q6H PRN PRN Reason: NAUSEA OR VOMITING Pravastatin Sodium (Pravachol) 40 mg PO HS [facility] Last Admin: 09/20/17 20:43 Dose: 40 mg Allergies/Adverse Reactions: Allergies Allergy/AdvReac Type Severity Reaction Status Date / Time No Known Allergies Allergy Severe Uncoded 06/02/13 16:33 Review of Systems All other systems reviewed negative except as stated in HPI Physical Exam Vital signs: Vital Signs 09/20/17 11:27 09/20/17 15:58 09/20/17 20:00 Temperature 98.1 F 97.8 F 97.5 F L Pulse Rate 72 73 70 Respiratory Rate 16 18 18 Blood Pressure 188/84 H 172/77 H 178/80 H Pulse Oximetry 95 98 95 09/21/17 00:00 09/21/17 00:29 09/21/17 00:30 Temperature 98.2 F 98.2 F Pulse Rate 75 70 76 Respiratory Rate 18 18 Blood Pressure 127/60 Pulse Oximetry 94 L 93 L 09/21/17 00:31 09/21/17 04:21 09/21/17 07:55 Temperature 98.2 F 97.9 F Pulse Rate 77 72 62 Respiratory Rate 18 18 Blood Pressure 130/62 175/80 H Pulse Oximetry 92 L 93 L 09/21/17 07:57 09/21/17 09:05 Temperature 97.7 F Pulse Rate 63 83 Respiratory Rate 16 Blood Pressure 148/67 H 143/62 H Pulse Oximetry 95 95 Intake & Output 09/20/17 09/21/17 09/21/17 18:59 06:59 18:59 Other: # Voids 3 Narrative: GENERAL: This is a well-nourished, well-developed patient, in no apparent distress. SKIN: Warm, dry, intact EYES: Pupils equal round and reactive, no scleral edema or drainage CARDIOVASCULAR: Regular rate and rhythm without murmurs, RESPIRATORY: Clear to auscultation. Breath sounds equal bilaterally. GASTROINTESTINAL: Abdomen soft, non-tender, nondistended. Normal active bowel sounds MUSCULOSKELETAL: Extremities without clubbing, cyanosis, or edema. NEURO: Alert & Oriented x3, face sym, vff, no drift, msr 1+ sym, slightly increased tone in ue, no tremors Objective Laboratory Results - last 24 hr 09/20/17 09/20/17 09/20/17 06:20 13:18 17:05 POC Glucose 100 153 H Vitamin B12 161 L TSH 0.014 L 09/20/17 22:32 POC Glucose 122 H Vitamin B12 TSH Review/Management - Diagnosis (1) Syncope and collapse Code(s): R55 - Syncope and collapse Status: Acute Current Visit: Yes (2) Hypertension Code(s): I10 - Essential (primary) hypertension Status: Acute Current Visit : Yes (3) Gait disorder Code(s): R26.9 - Unspecified abnormalities of gait and mobility Status: Acute Current Visit: Yes - Review/Management Plan: Possibly related orthostatic hypotension versus vasovagal versus secondary to cardiac arrhythmia Unlikely to be a TIA or seizure Recommendations neuro stable one set of orthostatics negative mri/mra negative b12 deficiency- IM B12 Consider cardiac evaluation to exclude any arrhythmia PT evaluation eeg-pending No driving Discharge planning after the above follow-up in the outpatient setting
[2017-09-21] MEDS: Fenofibrate 48 MG Tablet PO SCH (09:35)
[2017-09-21] MEDS: Gabapentin 300 MG Capsule PO SCH ×2 (09:35→13:07)
[2017-09-21] MEDS: Hydroxychloroquine 200 MG Tablet PO SCH (09:36)
[2017-09-21] MEDS: hydroCHLOROthiazide 25 MG Tablet PO SCH (09:36)
[2017-09-21] MEDS: Famotidine 20 MG Tablet PO SCH (09:37)
--- NOTE | 2017-09-21 14:16 | MG ---
cc: Matt Banks MD, PhD ELECTROENCEPHALOGRAM #[id number] REFERRING PHYSICIAN: Fermin Umanzor MD TECHNIQUE: 17-channel EEG. DESCRIPTION: The background rhythm reveals a symmetrical alpha rhythm with a frequency of 8 Hz to 9 Hz. Amplitude in the range of 10-15 microvolts. There is beta activity present, which is likely medication effect. Occasional muscle artifact is identified. There is some slowing in the theta range during drowsiness. No lateralizing features are identified. No epileptiform features are seen. Later in the study sleep spindles are identified with delta slowing, consistent with normal sleep activity. Photic stimulation results in a normal driving response. Hyperventilation was not performed. INTERPRETATION: Normal electroencephalogram. Matt Banks MD, PhD NARINDER/ch , 02:00 PM , 02:06 PM
--- NOTE | 2017-09-21 14:26 | P.PN ---
Subjective Interval history: Patient seen lying in bed. Her daughter is with her. They are both anxious for her to go home. Patient tells me that she is feeling good. No dizziness or syncope. No chest pain or palpitations. Nurse confirms no adverse events as patient is a somewhat unreliable historian. Physical Exam Vital signs: Vital Signs 09/20/17 15:58 09/20/17 20:00 09/21/17 00:00 Temperature 97.8 F 97.5 F L Pulse Rate 73 70 75 Respiratory Rate 18 18 Blood Pressure 172/77 H 178/80 H Pulse Oximetry 98 95 09/21/17 00:29 09/21/17 00:30 09/21/17 00:31 Temperature 98.2 F 98.2 F 98.2 F Pulse Rate 70 76 77 Respiratory Rate 18 18 18 Blood Pressure 127/60 130/62 Pulse Oximetry 94 L 93 L 92 L 09/21/17 04:21 09/21/17 07:55 09/21/17 07:57 Temperature 97.9 F 97.7 F Pulse Rate 72 62 63 Respiratory Rate 18 16 Blood Pressure 175/80 H 148/67 H Pulse Oximetry 93 L 95 09/21/17 09:05 09/21/17 12:00 Temperature 97.9 F Pulse Rate 83 75 Respiratory Rate 16 Blood Pressure 143/62 H 171/74 H Pulse Oximetry 95 95 Intake & Output 09/20/17 09/21/17 09/21/17 18:59 06:59 18:59 Other: # Voids 3 Date of Last Bowel Movement 09/20/17 Narrative: GENERAL: This is a well-nourished, well-developed patient, in no apparent distress. SKIN: Warm, dry, intact, no ecchymosis or open lesions EYES: Pupils equal round and reactive, no scleral edema or drainage CARDIOVASCULAR: Regular rate and rhythm without murmurs, gallops, or rubs. RESPIRATORY: Clear to auscultation. Breath sounds equal bilaterally. No wheezes , rales, or rhonchi. GASTROINTESTINAL: Abdomen soft, non-tender, nondistended. Normal active bowel sounds MUSCULOSKELETAL: Extremities without clubbing, cyanosis, or edema. Results - Labs CBC & Chem 7: 09/20/17 06:10 09/20/17 06:20 Laboratory Results - last 24 hr 09/20/17 09/20/17 09/20/17 06:20 17:05 22:32 POC Glucose 153 H 122 H Vitamin B12 161 L TSH 0.014 L 09/21/17 09/21/17 08:58 12:39 POC Glucose 98 135 H Vitamin B12 TSH - Imaging Impressions Head MRI 09/20/17 00:00 CONCLUSION: 1. No acute hemorrhage, mass or infarction. 2. Mild atrophy and chronic small vessel ischemic change. Head MRA 09/20/17 17:59 CONCLUSION: 1. Negative exam. Assessment and Plan - Assessment (1) Syncope and collapse Code(s): R55 - Syncope and collapse Status: Acute (2) Gait disorder Code(s): R26.9 - Unspecified abnormalities of gait and mobility Status: Acute - Plan 82-year-old female with a history of diabetes, GERD, hyperlipidemia, hypertension, hypothyroid presented to the ED after having a syncopal episode in the bathroom. Patient states she was leaving the bathroom at home and passed out on the floor. Syncope Head CT reviewed and unremarkable EKG reviewed and shows SR -2d echo ordered; carotid ultrasound showed no significant stenosis -Neuro checks -Consult to neurology for evaluation; neurology does not think event was related to either TIA or seizure. -Holter monitor; patient should follow-up with cardiology on an outpatient basis -Monitor telemetry -Orthostatic BPs ordered -first set negative Hypokalemia, acute, potassium 3.0 -Supplementation ordered, labs in am, replace as needed; potassium WNL on 09/20 DM, chronic -Accu checks with SSI -Diabetic diet HTN, chronic -Resume home medications DVT prophylaxisL: SCDS Discussed Condition With: Patient and manager merchandise planning Patient likely to be discharged 09/21/17 pending completion of previously ordered echo and EEG.
[2017-09-21 15:46] VITALS: BP 140/73; PULSE 72; TEMP 97.8
--- NOTE | 2017-09-21 17:36 | ECHRPT ---
Indication: CHEST PAIN CONCLUSIONS The left ventricular systolic function is normal with an estimated ejection fraction in the range of 60-65%. Normal left ventricular size. Wall thickness is normal. No regional wall motion abnormalities are present. Trace mitral valve regurgitation. There is trace tricuspid valve regurgitation. The estimated pulmonary arterial pressure is 36 mmHg. BP: / HR: Rhythm: Sinus MEASUREMENTS (Male / Female) Normal Values Technical Quality:Good 2D ECHO LV Diastolic Diameter PLAX 4.2 cm 4.2 - 5.9 / 3.9 - 5.3 cm LV Systolic Diameter PLAX 3.0 cm IVS Diastolic Thickness 1.1 cm 0.6 - 1.0 / 0.6 - 0.9 cm LVPW Diastolic Thickness 1.1 cm 0.6 - 1.0 / 0.6 - 0.9 cm LV Relative Wall Thickness 0.5 RV Internal Dim ED PLAX 2.5 cm LVOT Diameter 1.8 cm LA Systolic Diameter LX 3.1 cm 3.0 - 4.0 / 2.7 - 3.8 cm LV Ejection Fraction MOD 4C 64.0 % LV Ejection Fraction 4C AL 64.7 % M-MODE Aortic Root Diameter MM 2.4 cm LA Systolic Diameter MM 2.7 cm LA Ao Ratio MM 1.1 AV Cusp Separation MM 1.4 cm DOPPLER AV Peak Velocity 179.0 cm/s AV Peak Gradient 12.8 mmHg LVOT Peak Velocity 123.0 cm/s LVOT Peak Gradient 6.1 mmHg AV Area Cont Eq pk 1.7 cm MV Area PHT 2.5 cm Mitral E Point Velocity 78.5 cm/s Mitral A Point Velocity 119.0 cm/s Mitral E to A Ratio 0.7 LV E' Lateral Velocity 6.8 cm/s Mitral E to LV E' Lateral Ratio 11.5 LV E' Septal Velocity 6.0 cm/s Mitral E to LV E' Septal Ratio 13.0 TR Peak Velocity 257.0 cm/s TR Peak Gradient 26.4 mmHg Right Atrial Pressure 10.0 mmHg Pulmonary Artery Systolic Pressu 36.4 mmHg Right Ventricular Systolic Press 36.4 mmHg PV Peak Velocity 115.0 cm/s PV Peak Gradient 5.3 mmHg FINDINGS LEFT VENTRICLE The left ventricular systolic function is normal with an estimated ejection fraction in the range of 60-65%. Normal left ventricular size. Wall thickness is normal. No regional wall motion abnormalities are present. RIGHT VENTRICLE Normal right ventricular size and systolic function. LEFT ATRIUM The left atrial size is normal. RIGHT ATRIUM The right atrial size is normal. ATRIAL SEPTUM Normal atrial septal thickness without atrial level shunting by limited color doppler interrogation. AORTA The aortic root and proximal ascending aorta are normal in size on limited imaging. MITRAL VALVE Structurally normal mitral valve. Trace mitral valve regurgitation. AORTIC VALVE Trileaflet aortic valve. No aortic valve stenosis or regurgitation. TRICUSPID VALVE Structurally normal tricuspid valve. There is trace tricuspid valve regurgitation. The estimated pulmonary arterial pressure is 36.4 mmHg. PULMONARY VALVE No pulmonary valve regurgitation or stenosis. VESSELS The inferior vena cava is normal in size. PERICARDIUM No pericardial effusion. Jenna Pereira MD, FACC (Electronically Signed) Final Date:21 September 2017 17:35
--- NOTE | 2017-09-21 17:39 | P.DS ---
Date of admission: 09/19/17 19:32 Primary care physician: PROVIDER NON STAFF Attending physician on discharge: Laz Baxter Brief History from admission: 82-year-old female with a history of diabetes, GERD, hyperlipidemia, hypertension, hypothyroid presented to the ED after having a syncopal episode in the bathroom. Patient states she was leaving the bathroom at home and passed out on the floor. When she came to took about an hour for her to call 911,. She denies any dizziness or chest pain prior to the fall. She does admit that she does have orthostatic hypotension and notices when she gets out of bed in the morning she has to take time otherwise she does get dizzy. Current complaints now is pain lower back, intermittent, 8/10, some relief with morphine, worse with movement. She has had carotid ultrasounds in the past and is unsure. DS: Diagnosis - Discharge Diagnosis (1) Syncope and collapse Status: Resolved (2) Gait disorder Status: Acute (3) Hypertension Status: Chronic DS: Summary Hospital Course: 82-year-old female with a history of diabetes, GERD, hyperlipidemia, hypertension, hypothyroid presented to the ED after having a syncopal episode in the bathroom. Patient states she was leaving the bathroom at home and passed out on the floor. Head CT reviewed and unremarkable; EKG reviewed and shows SR; carotid ultrasound showed no significant stenosis. Orthostatic BPs negative. Neurology consulted - does not think event was related to either TIA or seizure. EEG normal. Patient should follow-up with cardiology on an outpatient basis. Consider also over-medication. Home health and PT to improve gait/stability. - Time Spent with Patient Total time spent providing and/or coordinating discharge services: Less than 30 minutes - Quality: VTE Deep Vein Thrombosis/Pulmonary Embolism Present on Admission: No Exam Vital signs: Vital Signs 09/20/17 20:00 09/21/17 00:00 09/21/17 00:29 Temperature 97.5 F L 98.2 F Pulse Rate 70 75 70 Respiratory Rate 18 18 Blood Pressure 178/80 H Pulse Oximetry 95 94 L 09/21/17 00:30 09/21/17 00:31 09/21/17 04:21 Temperature 98.2 F 98.2 F 97.9 F Pulse Rate 76 77 72 Respiratory Rate 18 18 18 Blood Pressure 127/60 130/62 175/80 H Pulse Oximetry 93 L 92 L 93 L 09/21/17 07:55 09/21/17 07:57 09/21/17 09:05 Temperature 97.7 F Pulse Rate 62 63 83 Respiratory Rate 16 Blood Pressure 148/67 H 143/62 H Pulse Oximetry 95 95 09/21/17 12:00 09/21/17 15:45 Temperature 97.9 F 97.8 F Pulse Rate 75 72 Respiratory Rate 16 16 Blood Pressure 171/74 H 140/73 Pulse Oximetry 95 95 Intake & Output 09/20/17 09/21/17 09/21/17 18:59 06:59 18:59 Other: # Voids 3 Date of Last Bowel Movement 09/20/17 Narrative: GENERAL: This is a well-nourished, well-developed patient, in no apparent distress. SKIN: Warm, dry, intact, no ecchymosis or open lesions EYES: Pupils equal round and reactive, no scleral edema or drainage CARDIOVASCULAR: Regular rate and rhythm without murmurs, gallops, or rubs. RESPIRATORY: Clear to auscultation. Breath sounds equal bilaterally. No wheezes , rales, or rhonchi. GASTROINTESTINAL: Abdomen soft, non-tender, nondistended. Normal active bowel sounds MUSCULOSKELETAL: Extremities without clubbing, cyanosis, or edema. Results Procedures completed during hospitalization: none Labs on day of discharge: Labs from last 24 hours 09/21/17 09/21/17 09/20/17 12:39 08:58 22:32 POC Glucose 135 H 98 122 H Vitamin B12 TSH 09/20/17 06:20 POC Glucose Vitamin B12 161 L TSH 0.014 L - Impressions ITS Impressions Cervical Spine CT 09/19/17 16:34 CONCLUSION: 1. Negative acute trauma study. Head CT 09/19/17 16:34 CONCLUSION: Negative noncontrast head CT. Chest X-Ray 09/19/17 16:43 CONCLUSION: 1. No acute cardiopulmonary disease. Lumbar Spine X-Ray 09/19/17 16:43 CONCLUSION: 1. No acute fracture or subluxation. MRI examination may be performed if there is continued significant clinical concern. 2. 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 Sacrum and Coccyx X-Ray 09/19/17 16:43 CONCLUSION: 1. No definitive evidence for sacral fracture. MRI examination may be performed if there is significant persistent clinical concern. Pelvis X-Ray 09/19/17 17:27 CONCLUSION: 1. No acute fracture or dislocation. Carotid Doppler Study 09/20/17 00:00 CONCLUSION: 1. Right Internal Carotid Artery: Moderate atherosclerotic calcified plaquing in the carotid bulb extending up into the internal. No sonographic findings of a hemodynamically significant stenosis, however. 2. Left Internal Carotid Artery: Moderate atherosclerotic calcified plaquing in the carotid bulb extending up into the internal and external. No sonographic findings of a hemodynamically significant stenosis, however. 3. Antegrade flow in both vertebrals. Head MRI 09/20/17 00:00 CONCLUSION: 1. No acute hemorrhage, mass or infarction. 2. Mild atrophy and chronic small vessel ischemic change. Head MRA 09/20/17 17:59 CONCLUSION: 1. Negative exam. Discharge Plan - Discharge Disposition Patient Disposition: /[facility] - Discharge Condition Condition: Stable - Discharge Order Discharge Orders: Discharge Order (Routine); Ordered 09/21/17 Ordered By: Rima Kim - Discharge Details Anticipated Discharge Date: 09/21/17 - Physicians Team Primary Care Provider: NON STAFF,PROVIDER Attending Provider: Laz Baxter Other Providers: Fermin Umanzor MD
--- NOTE | 2017-09-22 13:04 | HM ---
Date Performed: 09/20/2017 Time Performed: 20:34:00 HOOKUP DATE: 09/20/17 08:34:00 PM Tue ANALYSIS START TIME: 09/20/2017 8:39:00 PM ANALYSIS END TIME: 09/21/2017 6:29:09 PM PATIENT AGE: 82 PATIENT HEIGHT PATIENT WEIGHT DRUG LIST PATIENT DIAGNOSIS: syncope TEST NARRATIVE: The patient's average heart rate was 73 BPM. No episodes of tachycardia wer e noted. No episodes of bradycardia were noted. No pauses exceeding 2.0 seconds were noted. 41 ventricular ectopics, which represented < 1% of the total beat count, were noted. The highest shaun tricular ectopic frequency occurred from 04:00 AM to 05:00 AM Wed. During this time 8 VE(s) occurred . Ventricular ectopics were observed as 41 isolated beat(s) only. No couplets or runs were noted. 8 supraventricular ectopics, which represented < 1% of the total beat count, were noted. The high est supraventricular ectopic frequency occurred from 09:00 AM to 10:00 AM Wed. During this time 2 SV E(s) occurred. No episodes of ST depression (defined as -1.0 mm or more) were noted in channel 1. No episodes of ST depression (defined as -1.0 mm or more) were noted in channel 2. No episodes of ST depression (defined as -1.0 mm or more) were noted in channel 3. TEST INTERPRETATION: Sinus rhythm with a rare PVC and very rare PAC. No significant bradycardia or heart block was seen. No tachy ar rhythmias were noted. Signed by : Jagdish Bateman
== END 2017-09-21 19:59 | disposition home health service (06) ==
LOC: NEPGCP 15:34 → NEPC 15:34 → NEDA 15:34 → NEPGCP 21:31
PROVIDERS: ADMIT Hospitalist; ATTEND Hospitalist